=== PATIENT | female | born 1960 | race American Indian/Alaskan Native ===

== ENCOUNTER 2016-10-07 08:45 | Outpatient (CLI) | payer MEDICARE ==
--- NOTE | 2016-10-07 15:56 | Mammography Report ---
BILATERAL DIGITAL SCREENING MAMMOGRAM with CAD : 10/07/16 08:45:00 CLINICAL: Routine screening.Status post benign left stereotactic breast biopsy for calcifications 03/19/12. COMPARISON:09/20/15 FINDINGS: The breasts are heterogeneously dense, which may obscure small masses.Left upper outer biopsy clip. No mass, architectural distortion or suspicious calcifications. IMPRESSION: No mammographic evidence of malignancy. BI-RADS CATEGORY: 2 -- Benign RECOMMENDATION: Routine mammographic screening in one year. COMMENT: Patient follow-up letters are generated by our [employer] application.
== END 2016-10-07 08:46 | disposition home or self-care (01) ==
LOC: SPVWC 08:45
PROVIDERS: ATTEND Family Medicine
DX: Z12.31 Encounter for screening mammogram for malignant neoplasm of breast (principal)
CPT/HCPCS: 77067; G0202

== ENCOUNTER 2018-03-01 10:42 | Outpatient (CLI) | payer MEDICARE | END 2018-03-01 10:43 | disposition home or self-care (01) | LOC: SPVWC 10:42 | PROVIDERS: ATTEND Family Medicine | DX: Z12.31 Encounter for screening mammogram for malignant neoplasm of breast (principal) | CPT/HCPCS: 77067 ==

== ENCOUNTER 2019-03-04 13:42 | Outpatient (CLI) | payer MEDICARE ==
--- NOTE | 2019-03-07 14:05 | Mammography Report ---
BILATERAL DIGITAL SCREENING MAMMOGRAM WITH CAD INDICATION: Routine screening mammography. TECHNIQUE: Digital bilateral 2D mammography was obtained in the craniocaudal and mediolateral obliq ue projections. This examination was interpreted with the benefit of Computer-Aided Detection analysi s. COMPARISON: 09/20/2015 FINDINGS: Breast Density: The breasts are heterogeneously dense, which may obscure small masses. No mass, architectural distortion or suspicious calcifications. Left outer biopsy clip and scattered bilateral benign calcifications, some of which are arterial. IMPRESSION:No mammographic evidence of malignancy. BI-RADS Category 2: Benign. No mammographic evidence of malignancy. Recommend routine screening ma mmography in one year. A "normal" or negative report should not discourage follow up or biopsy of a clinically significant f inding. A written summary of these findings will be mailed to the patient. The patient will be entered into a mammography reporting system which will generate a reminder letter for the patient's next appointmen t at the appropriate interval. The [employer] recommends yearly mammograms starting at age 40 and continuing as l sabas as a woman is in good health. Breast MRI is recommended for women with an approximate 20-25% or greater lifetime risk of breast cancer, including women with a strong family history of breast or ova stephanie cancer or who have been treated for Hodgkin's disease. Signer Name: Joe Trinh MD Signed: 03/07/2019 2:01 PM Workstation Name: [id number]
--- NOTE | 2019-03-08 11:15 | Mammography Report ---
BONE DEXA CLINICAL: Postmenopausal TECHNIQUE: 2 site bone DEXA performed on an Hologic scanner. FINDINGS: The average BMD of the lumbar spine L1-L4 is 1.266g/cm squared with a T score of +2.0 and a Z score o f +3.4. This compares to 1.282g/cm squared on the last exam and represents a -1.3 percent change from the [previous baseline]. The average BMD of the left hip is 1.012 g/cm squared with a T score of +0.6and a Z score of this 1.5 . This compares to 1.153 g/cm squared on the last exam and represents a -12.2 percent change from the [previous baseline]. IMPRESSION: 1. WHO classification: Normal with average fracture risk based on both spine and left hip measurement s. 2. A modest decline in spine BMD compared to the last exam but a pronounced decline in left hip BMD c ompared to the last exam. RECOMMENDATION: Clinical correlation and routine screening. Definitions: BMD equal bone mineral density T score = BMD related to peak bone mass of young adult ([place] expressed an standard deviation) Z score = age-matched BMD expressed in SD World health organization (WHO) diagnostic criteria Normal T score greater than equal to 1 standard deviation Osteopenia T score between -1 and -2.4 standard deviation Osteoporosis T score -2.5 standard deviation or below. Note: BMD is not the only risk factor for fracture; also consider factors such as the patient's age, risk of falling, previous osteoporotic fracture, family history of osteoporotic fractures, current sm oker and low body weight. Z scores are not calculated if greater than 80 years of age. Signer Name: Joe Trinh MD Signed: 03/08/2019 11:11 AM Workstation Name: [id number]
== END 2019-03-04 13:43 | disposition home or self-care (01) ==
LOC: SPVWC 13:42
PROVIDERS: ATTEND Family Medicine
DX: Z12.31 Encounter for screening mammogram for malignant neoplasm of breast (principal); Z78.0 Asymptomatic menopausal state
CPT/HCPCS: 77067; 77080

== ENCOUNTER 2021-07-31 15:52 | Outpatient (CLI) | payer MEDICARE ==
--- NOTE | 2021-08-01 13:51 | Mammography Report ---
DIGITAL SCREENING MAMMOGRAM WITH CAD, 07/31/2021 CLINICAL INFORMATION / INDICATION: Routine screening TECHNIQUE: Digital bilateral 2D mammography was obtained in the craniocaudal and mediolateral obliqu e projections. This examination was interpreted with the benefit of Computer-Aided Detection analysis . COMPARISON: 04/04/2020 and prior FINDINGS: Breast Density: The breasts are extremely dense, which lowers the sensitivity of mammography. No dominant mass, suspicious calcifications, or architectural distortion in either breast. Left biopsy changes are again seen as are benign-appearing calcifications bilaterally. IMPRESSION: No mammographic evidence of malignancy. Follow up recommendation: Routine yearly BI-RADS Category 2: BENIGN. A "normal" or negative report should not discourage follow up or biopsy of a clinically significant f inding. A written summary of these findings will be mailed to the patient. The patient will be entered into a mammography reporting system which will generate a reminder letter for the patient's next appointmen t at the appropriate interval. The [employer] recommends yearly mammograms starting at age 40 and continuing as l sabas as a woman is in good health. Breast MRI is recommended for women with an approximate 20-25% or greater lifetime risk of breast cancer, including women with a strong family history of breast or ova stephanie cancer or who have been treated for Hodgkin's disease. Signer Name: Aurelio Hernandez MD Signed: 08/01/2021 1:47 PM Workstation Name: [id number]
== END 2021-07-31 15:53 | disposition home or self-care (01) ==
LOC: SPVWC 15:52
PROVIDERS: ATTEND Family Medicine
DX: Z12.31 Encounter for screening mammogram for malignant neoplasm of breast (principal)
CPT/HCPCS: 77067